=== PATIENT | male | born 1970 | race African-American/Black ===

== ENCOUNTER 2017-08-21 00:25 | Emergency (ER) | payer BC ==
[~2017-08-21] VITALS: Ht 182.9 cm; Wt 103.0 kg
[2017-08-21 00:28] VITALS: BP 141/102
[2017-08-21] MEDS ORDERED: IBUPROFEN 200200 M1 PO (00:38)
[2017-08-21] MEDS ORDERED: ALEVE220 MG PO (00:38)
[2017-08-21] MEDS ORDERED: ASPIRIN EC325 MG PO (00:39)
[2017-08-21] MEDS ORDERED: ORAL PAIN RELI9.4 GM MUCOUS MEM (00:40)
[2017-08-21] MEDS ORDERED: PRED MILD5 ML OPHTHALMIC (00:41)
[2017-08-21] MEDS ORDERED: COMBIGAN EYE DR10 ML OPHTHALMIC (00:42)
[2017-08-21] MEDS ORDERED: NORCO 5-325 TA1 EACH PO (00:45)
[2017-08-21] MEDS ORDERED: PENICILLIN V P500 MG PO (00:46)
== END 2017-08-21 00:57 | disposition home or self-care (01) ==
LOC: ER 00:25
DX: K08.89 Other specified disorders of teeth and supporting structures (principal); F17.210 Nicotine dependence, cigarettes, uncomplicated

== ENCOUNTER → 2018-06-06 | Outpatient (CLI) | payer BC ==
[~2018-06-06] MED LIST: ALEVE220 MG PO; ASPIRIN EC325 MG PO; COMBIGAN EYE DR10 ML OPHTHALMIC; IBUPROFEN 200200 M1 PO; NORCO 5-325 TA1 EACH PO; ORAL PAIN RELI9.4 GM MUCOUS MEM; PENICILLIN V P500 MG PO; PRED MILD5 ML OPHTHALMIC
== END ==
LOC: RAD 09:26
DX: S49.92XA Unspecified injury of left shoulder and upper arm, initial encounter (principal); X58.XXXA Exposure to other specified factors, initial encounter; Y93.89 Activity, other specified; Y92.89 Other specified places as the place of occurrence of the external cause; Y99.8 Other external cause status

== ENCOUNTER → 2018-11-15 | Outpatient (CLI) | payer BC | LOC: MRI 09:40 | DX: M47.22 Other spondylosis with radiculopathy, cervical region (principal); M50.123 Cervical disc disorder at C6-C7 level with radiculopathy ==

== ENCOUNTER → 2018-11-17 | Outpatient (CLI) | payer OTHER | LOC: CAT 10:06 | DX: Z13.6 Encounter for screening for cardiovascular disorders (principal); E78.00 Pure hypercholesterolemia, unspecified; I25.10 Atherosclerotic heart disease of native coronary artery without angina pectoris ==